=== PATIENT | female | born 1980 | race African-American/Black ===

== ENCOUNTER 2017-07-03 18:44 | Emergency (ER) | payer OTHER ==
[2017-07-03] MEDS: NORCO 5/325MG TABLET (BULK FOR ED) PO (20:37)
== END 2017-07-03 20:40 | disposition home or self-care (01) ==
LOC: M ED 18:44
DX: T33.821A Superficial frostbite of right foot, initial encounter (principal); T33.822A Superficial frostbite of left foot, initial encounter; G90.09 Other idiopathic peripheral autonomic neuropathy; X31.XXXA Exposure to excessive natural cold, initial encounter; Y92.84 Military training ground as the place of occurrence of the external cause; Y93.9 Activity, unspecified; Y99.1 Military activity
CPT/HCPCS: 99283

== ENCOUNTER 2017-08-29 11:12 | Emergency (ER) | payer OTHER ==
[2017-08-29 11:51] LABS: BASO % 0.2 % (0.0-1.0); EOS # 0.1 10^3/uL (0.0-0.50); EOS % 0.7 % (0.0-3.0); HEMATOCRIT 38.3 % (36.0-47.0); HEMOGLOBIN 12.3 g/dl (12.0-15.5); IMMATURE GRANULOCYTE % 0.2 % (0-3.0); LYMPH # 2.7 10^3/uL (1.5-4.5); LYMPH % 30.7 % (24.0-44.0); MEAN CORPUSCULAR HEMOGLOBIN 22.6 pg (27.0-33.0); MEAN CORPUSCULAR HGB CONC 32.1 g/dl (32.0-36.5); MEAN CORPUSCULAR VOLUME 70.4 fl (80.0-96.0); MONO # 0.5 10^3/uL (0.0-0.8); MONO % 6.1 % (0.0-5.0); NEUTROPHILS # 5.4 10^3/uL (1.8-7.7); NEUTROPHILS % 62.1 % (36.0-66.0); PLATELET COUNT, AUTOMATED 350 10^3/uL (150-450); RED BLOOD COUNT 5.44 10^6/uL (4.00-5.40); RED CELL DISTRIBUTION WIDTH 14.8 % (11.5-14.5); WHITE BLOOD COUNT 8.7 10^3/uL (4.0-10.0)
[2017-08-29 11:57] LABS: KETONE, URINE AUTO RFX NEGATIVE (NEGATIVE); LEUKOCYTE ESTERASE UR AUTO RFX NEGATIVE (NEGATIVE); MUCUS, URINE RFX SMALL (NEGATIVE); NITRITE, URINE AUTO RFX NEGATIVE (NEGATIVE); RBC, URINE AUTO RFX 1 /HPF (0-3); SPECIFIC GRAVITY UR AUTO RFX 1.003 (1.002-1.035); SQUAM EPITHELIAL CELL UR AURFX 1 /HPF (0-6); WBC, URINE AUTO RFX 1 /HPF (0-3)
[2017-08-29 12:18] LABS: HCG, SERUM QUANTITATIVE 86 MIU/ML
== END 2017-08-29 13:52 | disposition home or self-care (01) ==
LOC: M ED 11:12
DX: O20.0 Threatened abortion (principal); Z79.899 Other long term (current) drug therapy
CPT/HCPCS: 76801

== ENCOUNTER 2018-01-30 10:46 | Emergency (ER) | payer OTHER ==
[2018-01-30 11:25] LABS: HEMOGLOBIN 11.8 g/dl (12.0-15.5); MEAN CORPUSCULAR HEMOGLOBIN 23.1 pg (27.0-33.0); MEAN CORPUSCULAR HGB CONC 32.8 g/dl (32.0-36.5); MEAN CORPUSCULAR VOLUME 70.5 fl (80.0-96.0); PLATELET COUNT, AUTOMATED 196 10^3/uL (150-450); RED BLOOD COUNT 5.11 10^6/uL (4.00-5.40); RED CELL DISTRIBUTION WIDTH 15.6 % (11.5-14.5); WHITE BLOOD COUNT 13.1 10^3/uL (4.0-10.0)
[2018-01-30] MEDS: NS 1,000 ML IV (11:29)
[2018-01-30] MEDS: ONDANSETRON 4MG/2ML VIAL (J2405) IV (11:29)
[2018-01-30 11:40] LABS: ALBUMIN 3.2 GM/DL (3.2-5.2); ALBUMIN/GLOBULIN RATIO 0.74 (1.00-1.93); ALKALINE PHOSPHATASE 71 U/L (45-117); ALT/SGPT 25 U/L (12-78); ANION GAP 11 MEQ/L (8-16); AST/SGOT 21 U/L (7-37); BILIRUBIN,TOTAL 0.2 MG/DL (0.2-1.0); BLOOD UREA NITROGEN 8 MG/DL (7-18); CALCIUM LEVEL 8.9 MG/DL (8.5-10.1); CARBON DIOXIDE LEVEL 23 MEQ/L (21-32); CHLORIDE LEVEL 104 MEQ/L (98-107); CREATININE FOR GFR 0.59 MG/DL (0.55-1.30); GLOMERULAR FILTRATION RATE > 60.0 (>60); GLUCOSE, FASTING 73 MG/DL (70-100); POTASSIUM SERUM 3.7 MEQ/L (3.5-5.1); SODIUM LEVEL 138 MEQ/L (136-145); TOTAL PROTEIN 7.5 GM/DL (6.4-8.2)
[2018-01-30 12:12] LABS: BASO % 0.2 % (0.0-1.0); EOS % 0.3 % (0.0-3.0); IMMATURE GRANULOCYTE # 0.1 10^3/uL (0-0); IMMATURE GRANULOCYTE % 0.5 % (0-3.0); LYMPH # 2.3 10^3/uL (1.5-4.5); LYMPH % 17.7 % (24.0-44.0); MONO # 0.8 10^3/uL (0.0-0.8); MONO % 6.2 % (0.0-5.0); NEUTROPHILS # 9.9 10^3/uL (1.8-7.7); NEUTROPHILS % 75.1 % (36.0-66.0)
[2018-01-30 13:08] LABS: PLATELET ESTIMATE NORMAL (NORMAL)
== END 2018-01-30 14:11 | disposition home or self-care (01) ==
LOC: M ED 10:46
DX: O21.9 Vomiting of pregnancy, unspecified (principal); Z79.899 Other long term (current) drug therapy; Z3A.18 18 weeks gestation of pregnancy
CPT/HCPCS: J2405

== ENCOUNTER 2018-07-05 02:41 | Inpatient (IN) | payer OTHER ==
[2018-07-05] VITALS (36 sets, daily range): BP systolic 91–159; BP diastolic 50–95
[~2018-07-05] VITALS: Ht 172.7 cm; Wt 104.1 kg
[~2018-07-05 02:41] MED LIST: ADVI200C5 PO; NORCOTAB PO; PRENTAB9 PO; ZOFR4TAB16 PO
--- NOTE | 2018-07-05 03:08 | IPNPDOC ---
Text Note Date of Service The patient was seen on 07/05/18. NOTE [id number] @ 0257 37 yo @ 40+0 by LMP([id number]) and 7+3 wk US on [id number] presents to L&D ambulatory c/o CTXs with spouse. Denies LOF, DFM, and vaginal bleeding. GBS positive. S: Is unable to hold still during CTXs. Rocking and squatting through each contraction. O: VS- WNL, afebrile FHR- 135, moderate variability, + accesl, no decels(only on monitor for 10 min) CTX- Q 1-2 min, lasting < 90 sec, palpated as mild-mod, resting tone palpated as soft SVE- 2/thick/-2, post/vtx/moderate A: 37 yo @ 40+0 with reactive NST. Appears to be in labor. GBS positive. P: Admit to L&D and start GBS tx. Continue to monitor and assess. Reassess in 2 hours or prn HALLE VAZQUEZ CNM Jul 05, 2018 03:08
[2018-07-05] MEDS ORDERED: LACTATED RINGER'S 1000 ML IV STA (03:10)
[2018-07-05] MEDS ORDERED: PENICILLIN G POTASSIUM 5 MU VIAL As Ordered ONE (03:29)
[2018-07-05] MEDS ORDERED: PENICILLIN G POTASSIUM IV 5 MU in D5W MINI-BAG PLUS 100 ML IV STA (03:30)
--- NOTE | 2018-07-05 03:30 | HPEPDOC ---
Obstetrical History & Physical General Date of Admission Jul 05, 2018 at 03:01 History of Present Illness 37 yo @ 40+0 by LMP([id number]) and 7+3 wk US on [id number] presents to L &D ambulatory c/o CTXs with spouse. Denies LOF, DFM, and vaginal bleeding. GBS positive. Chief Complaint: Contractions, term Information Provided By: Patient Age: 37 : 3 Term: 1 Pre-term: 0 Abortions: 1 Livin Care Care: Good Care Number of Visits: 12 Dating Final EDC: Jul 05, 2018 Final EDC for Daily Update: Jul 05, 2018 Final EDC by: LMP, 1st trimester (US) LMP: Sep 28, 2017 1st Trimester Date: Nov 19, 2017 Weeks + Days: 7.3 Estimated Date of Confinement: Jul 05, 2018 EGA at Admission: 40.0 Antepartum Course Diagnos(e)s 1. AMA 2. GBS positive 3. excessive weight gain Height (inches): 68 Pre- weight (lbs.): 170 Admission Weight (lbs.): 227 Change in Weight (lbs.): 57 Past Medical History Past Obstetrical History : Past Obstetrical History: Multigravida Date of Delivery: September 10, 2005 Gestation: 40 Type of Delivery: Spontaneous Vaginal Del. Sex of Infant: Male Weight of Infant (grams): 3175 Complications: No [employer] History: Human papillomavirus(HPV) Past Medical History Medical History DENIES Surgical History: [place] teeth Family History Significant Family History: No pertinent family hx Social History Marital Status: Family situation: Spouse/partner home Psychosocial History: No pertinent psych hx * Smoker: non-smoker Alcohol: Denies Drugs: denies Abuse Violence Screening Have you been hit/kicked/slapp: No Have you been sexually assault: No Imunizations Tdap status: current ([id number]) Influenza Status: current ([id number]) Allergies Coded Allergies: No Known Allergies (Unverified , 07/03/17) Medications Miscellaneous Medications Multivitamins/ ( 27-0.8 mg) 1 Tab Tab, 1 TAB PO Physical Examination Physical Examination GENERAL: A&O x 3 BREAST: . ABDOMEN: Gravid and non-tender to touch. FETUS: VTX by SVE and Edil. HEART RATE: RRR LUNGS: CTA EXTREMITIES: No edema. No clonus. DTRs +1 EFW- 3600 grams Laboratory Data CBC/BMP [id number] CBC-10.7/11.9/36.9/268 [id number] CBC-12.5/11.5/36.4/221 Urine Culture: Other (mixed nhi) Pertinent Laboratoy Data Blood Type: AB+ RBC Antibody Screen: Negative HIV: Negative Hepatitis B: Negative Hepatitis C: Unknown Rapid Plasma Reagin: Nonreactive Rubella: Immune Varicella: Immune Chlamydia/Gonorrhea: Negative Group B Streptococcus: Positive Quad Screen Test: Negative (MaterniT 21- negative) Glucose Tolerance Test: 123 Anatomy Ultrasound Ultrasound Date: Feb 16, 2018 Placenta Location: Posterior Normal Anatomy: Yes Placenta Previa: No Estimated Weight (grams): 360 Steroid Therapy Steroid Therapy: No Vaginal Examination Dilation: 2cm Effacement: other (thick) Station: -2 Cervical Consistency: Medium Cervical Position: Posterior Presentation: Cephalic presentation Position: Vertex (occiput) Assessment Heart Rate (FHR): 135 Variability: Moderate Accelerations: Positive Decelerations: None Tocometer Contractions: Yes Frequency: regular, every 2-5 min. Duration: less than 90 seconds Strength: palpated as mild/moderate, resting tone palp/soft Multi-drug resistant Organism: No history of MDRO Assessment/Plan Assessment 37 yo @ 40+0 with CTXs and hx of < 6 hour labor from 1 cm to delivery. GBS positive. 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 Diet: regular diet GBS positive, NKDA, tx per unit protocol Labs and IV per unit protocol. LR: Bolus 1000 mL, then at 125 mL/hr. Anticipate C-S as appropriate. HALLE VAZQUEZ CNM Jul 05, 2018 03:30
[2018-07-05] MEDS: LR 1,000 ML IV SCH ×2 (03:39→12:17)
[2018-07-05 05:00] LABS: HEMOGLOBIN 12.5 g/dl (12.0-15.5); MEAN CORPUSCULAR HEMOGLOBIN 22.7 pg (27.0-33.0); MEAN CORPUSCULAR HGB CONC 32.1 g/dl (32.0-36.5); MEAN CORPUSCULAR VOLUME 70.8 fl (80.0-96.0); PLATELET COUNT, AUTOMATED 140 10^3/uL (150-450); RED BLOOD COUNT 5.51 10^6/uL (4.00-5.40); WHITE BLOOD COUNT 12.1 10^3/uL (4.0-10.0)
--- NOTE | 2018-07-05 05:11 | IPNPDOC ---
Text Note Date of Service The patient was seen on 07/05/18. NOTE [id number] @ 0507 37 yo @ 40+0 with CTXs and hx of < 6 hour labor from 1 cm to delivery. GBS positive. S: Pt resting in bed on her right side breathing through her CTXs. Spouse is at bedside O: VS- WNL, afebrile FHR- 135, moderate variability, + accels, no decels CTX- Q2-6, palpated as strong, resting tone palpated as soft PCN-1st dose given @ 0330 A: 37 yo @ 40+0 with CAT I FHR tracing. Cervical change noted P: Continue to monitor and assess. Encourage walking on L&D unit. Reassess in 2-4 hours or prn. VS,Fishbone, I+O VS, Fishbone, I+O Laboratory Tests 07/05/18 03:20 Red Blood Count 5.51 H, Mean Corpuscular Volume 70.8 L, Mean Corpuscular Hemoglobin 22.7 L, Mean Corpuscular Hemoglobin Concent 32.1, Red Cell Distribution Width 15.7 H Vital Signs Date Time Temp Pulse Resp B/P (MAP) Pulse Ox O2 Delivery O2 Flow Rate FiO2 07/05/18 04:15 98.6 87 20 121/69 (86) HALLE VAZQUEZ CNM Jul 05, 2018 05:11
[2018-07-05] MEDS: PENICILLIN G POTASSIUM IV 2.5 MU in APPROPRIATE DILUENT 1 EA IV SCH ×2 (07:18→12:17)
[2018-07-05] MEDS ORDERED: FENTANYL 2MCG/ML ROPIVACAINE 0.2% IN 0.9% NACL 100ML IVBAG As Ordered ONE (07:26)
--- NOTE | 2018-07-05 08:01 | IPNPDOC ---
Text Note Date of Service The patient was seen on 07/05/18. NOTE [id number] @ 0800 Pt is currently getting an epidural. SBAR to Dr. Boston @ 5198 Renee CRUZ, I+O VSRenee, I+O Laboratory Tests 07/05/18 03:20 Red Blood Count 5.51 H, Mean Corpuscular Volume 70.8 L, Mean Corpuscular Hemoglobin 22.7 L, Mean Corpuscular Hemoglobin Concent 32.1, Red Cell Distribution Width 15.7 H Vital Signs Date Time Temp Pulse Resp B/P (MAP) Pulse Ox O2 Delivery O2 Flow Rate FiO2 07/05/18 05:45 88 20 118/86 (97) 07/05/18 04:15 98.6 HALLE VAZQUEZ CNM Jul 05, 2018 08:01
[2018-07-05] MEDS ORDERED: EPIDURAL COMMENT XX SCH (08:15)
[2018-07-05] MEDS ORDERED: EPIDURAL/PCA KEYS XX PRN (08:15)
[2018-07-05] MEDS ORDERED: ePHEDrine SULFATE 25 MG/5 ML(5MG/ML) SYRINGE IV PRN (08:15)
[2018-07-05] MEDS ORDERED: diphenhydrAMINE INJ 50MG/ML VIAL (J1200) IV PRN (08:15)
[2018-07-05] MEDS ORDERED: NALOXONE INJ 0.4 MG/1 ML VIAL (J2310) IV PRN (08:15)
[2018-07-05] MEDS ORDERED: FENTANYL/ROPIVACAINE/NACL BAG 100 ML EPIDURAL SCH (08:15)
[2018-07-05] MEDS ORDERED: REFRIGERATOR IV KEYS XX PRN (08:15)
[2018-07-05] MEDS ORDERED: ONDANSETRON 4MG/2ML VIAL (J2405) IV PRN (08:15)
[2018-07-05] MEDS ORDERED: LACTATED RINGER'S 1000 ML IV PRN (08:15)
--- NOTE | 2018-07-05 10:43 | IPNPDOC ---
Text Note Date of Service The patient was seen on 07/05/18. NOTE SBAR from MAJ Pacheco at 830 Pain well controlled NST Cat 1 Cx /-1, good bloody show Recheck in ~2-3 hrs, sooner prn Sessions VS,Renee, I+O VS, Renee I+O Laboratory Tests 07/05/18 03:20 Red Blood Count 5.51 H, Mean Corpuscular Volume 70.8 L, Mean Corpuscular Hemoglobin 22.7 L, Mean Corpuscular Hemoglobin Concent 32.1, Red Cell Distribution Width 15.7 H Vital Signs Date Time Temp Pulse Resp B/P (MAP) Pulse Ox O2 Delivery O2 Flow Rate FiO2 07/05/18 08:35 91 118/55 (76) 07/05/18 05:45 20 07/05/18 04:15 98.6 SESSIONS,CHRISSIE Wilks MD Jul 05, 2018 10:43
[2018-07-05] MEDS ORDERED: OXYTOCIN 30 UNITS IN 0.9% NaCl 500ML IV BAG (J2590) As Ordered ONE (12:34)
--- NOTE | 2018-07-05 12:41 | IPNPDOC ---
Text Note Date of Service The patient was seen on 07/05/18. NOTE NST Cat 1 per RN, mod reg and accels currently C/C/OA/+2 Start pushing Sessions VS,Renee, I+O VSRenee I+O Laboratory Tests 07/05/18 03:20 Red Blood Count 5.51 H, Mean Corpuscular Volume 70.8 L, Mean Corpuscular Hemoglo bin 22.7 L, Mean Corpuscular Hemoglobin Concent 32.1, Red Cell Distribution Width 15.7 H Vital Signs Date Time Temp Pulse Resp B/P (MAP) Pulse Ox O2 Delivery O2 Flow Rate FiO2 07/05/18 08:35 91 118/55 (76) 07/05/18 05:45 20 07/05/18 04:15 98.6 SESSIONS,CHRISSIE Wilks MD Jul 05, 2018 12:41
[2018-07-05] MEDS ORDERED: OXYTOCIN DRIP 30 UNITS in APPROPRIATE DILUENT 1 EA IV SCH (14:11)
[2018-07-05] MEDS ORDERED: RHOGAM 300 MCG (1500 IU) INJ (J2790) IM SCH (14:15)
[2018-07-05] MEDS ORDERED: ACETAMINOPHEN TAB 650MG DOSE (2X325MG) PO PRN (14:15)
[2018-07-05] MEDS ORDERED: IBUPROFEN 800 MG TAB PO PRN (14:15)
[2018-07-05] MEDS ORDERED: METOCLOPRAMIDE INJ 10MG/2ML VIAL (J2765) IV PRN (14:15)
[2018-07-05] MEDS ORDERED: MEASLES,MUMPS,RUBELLA VACCINE INJ (MMR-II) (90707) SC SCH (14:15)
[2018-07-05] MEDS ORDERED: DIBUCAINE 1% OINTMENT 30GM TOP PRN (14:15)
--- NOTE | 2018-07-05 14:23 | DNPDOC ---
[facility] Delivery Note Delivery Note DATE OF DELIVERY: [id number] PREDELIVERY DIAGNOSIS: 40 0/7 weeks' gestation and labor. POST DELIVERY DIAGNOSIS: Delivered. PROCEDURE: Spontaneous vaginal delivery BUCKRAM SEWER: Dr. Shukla ANESTHESIA: epidural ESTIMATED BLOOD LOSS: 300 mL. FINDINGS: 8 lb 12 oz, female infant, Score 9/9 DELIVERY SUMMARY: Called to room, with great effort. No delay of the vtx or the ant/post shoulders. JONI to ROT. Vigorous, to abd. Cord C/C by FOB. Placenta intact. Fundus firm with pit at 999. 1st degr ML lac repaired with 3-0 vicryl in standard fashion. Good cosmesis/hemostasis. Uncomplicated. Sessions MD SHUKLA,CHRISSIE Wilks MD Jul 05, 2018 14:23
[2018-07-05] MEDS: DOCUSATE SODIUM 100 MG CAP PO SCH (21:23)
[2018-07-06 06:05] VITALS: BP 132/61
--- NOTE | 2018-07-06 07:30 | IPNPDOC ---
Text Note Date of Service The patient was seen on 07/06/18. NOTE PPD2 States feeling well, pain controlled with prescribed meds. Baby bonding and feeding well. No heavy VB. Lochia slowing. Ambulatory. Tolerating PO without issues. Voiding spont. No CP/LP/SOB. VSSAF NAD A&O LE no C/C/E Ut at U-2, firm a/p: Doing well. Cont routine care. D/C today. To boarding if baby not released. Sessions Renee MONTES, I+O VSRenee I+O Vital Signs Date Time Temp Pulse Resp B/P (MAP) Pulse Ox O2 Delivery O2 Flow Rate FiO2 07/06/18 06:05 97.8 89 18 132/61 (84) 07/05/18 18:00 99 I&O- Last 24 Hours up to 6 AM 07/06/18 05:59 Intake Total 1000 ml Output Total 650 ml Balance 350 ml SESSIONS,CHRISSIE Wilks MD Jul 06, 2018 07:30
--- NOTE | 2018-07-06 07:32 | DS.PDOC ---
Discharge Summary General Date of Admission Jul 05, 2018 at 03:01 Date of Discharge [id number] Discharge Summary ADMITTING DIAGNOSES: Active labor DISCHARGE DIAGNOSES: Same, HOSPITAL COURSE: Admitted and delivery uncomplicated with epidural, . course uncomplicated. DISCHARGE MEDICATIONS: Motrin, Lanolin, Tylenol, Minipill (Nor) DISCHARGE INSTRUCTIONS: Nothing in the vagina for 6 weeks. F/U in OBGYN clinic in 6-8 weeks. Sessions Vital Signs/I&Os Vital Signs Date Time Temp Pulse Resp B/P (MAP) Pulse Ox O2 Delivery O2 Flow Rate FiO2 07/06/18 06:05 97.8 89 18 132/61 (84) 07/05/18 18:00 99 I&O- Last 24 Hours up to 6 AM 07/06/18 06:00 Intake Total 1000 ml Output Total 650 ml Balance 350 ml Discharge Medications Miscellaneous Medications Multivitamins/ ( 27-0.8 mg) 1 Tab Tab, 1 TAB PO, (Reported) Allergies Coded Allergies: No Known Allergies (Unverified , 07/03/17) SESSIONS,CHRISSIE Wilks MD Jul 06, 2018 07:32
[2018-07-06] MEDS ORDERED: COLA100C5 PO ×2 (08:04→08:05)
[2018-07-06] MEDS ORDERED: IBUP-1114 PO (08:04)
[2018-07-06] MEDS ORDERED: MAPA500T2 PO (08:04)
[2018-07-06] MEDS: DOCUSATE SODIUM 100 MG CAP PO SCH (08:12)
[2018-07-06] MEDS ORDERED: PRENATAL VITAMINS CHEWABLE TABLET PO SCH (09:00)
== END 2018-07-06 15:30 | disposition home or self-care (01) | DRG 807 ==
LOC: M LDO 02:41 → M LDI 03:01 → M OBS 16:16
PROVIDERS: ADMIT Midwife; ATTEND Obstetrics & Gynecology
PROC: 10E0XZZ Delivery of Products of Conception, External Approach (ICD-10-PCS; principal; 2018-07-05)
PROC: 0HQ9XZZ Repair Perineum Skin, External Approach (ICD-10-PCS; 2018-07-05)
DX: O99.824 Streptococcus B carrier state complicating childbirth (principal); Z37.0 Single live birth; Z3A.40 40 weeks gestation of pregnancy; O70.0 First degree perineal laceration during delivery

== ENCOUNTER → 2018-11-06 | Outpatient (REF) | payer OTHER ==
[~2018-11-06] MED LIST changes: +COLA100C5 PO; +HYDR-3715 PO; +IBUP-1114 PO; +MAPA500T2 PO; -NORCOTAB PO
== END ==
LOC: M SFHCLERA 12:29
PROVIDERS: ATTEND Physician Assistant
DX: J02.9 Acute pharyngitis, unspecified (principal)